=== PATIENT | female | born 1970 | race Caucasian/White ===

== ENCOUNTER 2017-08-18 21:51 | Emergency (ER) | payer MEDICAID ==
[~2017-08-18] VITALS: Ht 157.5 cm; Wt 72.6 kg
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
--- NOTE | 2017-08-18 22:13 | NUR ---
AT BEDSIDE FOR EVAL.
[2017-08-18] MEDS ORDERED: ASPIRIN 325 MG TABLET PO ONE (22:30)
[2017-08-18] MEDS ORDERED: LORAZEPAM INJ 2 MG/ML VIAL IV ONE (22:30)
[2017-08-18] MEDS ORDERED: ASPIRIN 81 MG TAB.CHEW ONE (22:59)
[2017-08-18] MEDS ORDERED: LORAZEPAM INJ 2 MG/ML VIAL ONE (23:00)
[2017-08-18 23:05] LABS: BASOPHILS % (AUTO) 0.5 % (0.0-2.0); EOSINOPHILS # (AUTO) 0.1 /CMM (0.0-0.7); EOSINOPHILS % (AUTO) 1.3 % (0.0-6.0); HEMATOCRIT 45 % (33-45); LYMPHOCYTES # (AUTO) 2.5 /CMM (0.8-4.8); LYMPHOCYTES % (AUTO) 34.2 % (20.0-44.0); MEAN CORPUSCULAR HEMOGLOBIN 31 PG (26.0-33.0); MEAN CORPUSCULAR HGB CONC 34 g/dl (31.0-36.0); MEAN CORPUSCULAR VOLUME 94 fL (82-100); MONOCYTES # (AUTO) 0.5 /CMM (0.1-1.30); MONOCYTES % (AUTO) 7.2 % (2.0-12.0); NEUTROPHILS # (AUTO) 4.2 /CMM (1.8-8.9); NEUTROPHILS % (AUTO) 56.8 % (43.0-81.0); PLATELET COUNT (AUTO) 227 /CMM (150-450); RDW COEFFICIENT OF VARIATION 12.2 (11.5-15.0); RED BLOOD CELL COUNT(AUTO) 4.78 MIL/uL (4.0-5.2); WHITE BLOOD COUNT (AUTO) 7.3 K/uL (4.3-11.0)
[2017-08-18 23:08] LABS: CALCIUM, SERUM 8.8 mg/dL (8.5-10.1); CARBON DIOXIDE 21 mmol/L (21-32); CHLORIDE 107 mmol/L (98-107); CREATININE 0.7 mg/dL (0.6-1.3); GLUCOSE 118 mg/dL (74-106); POTASSIUM 3.3 mmol/L (3.5-5.1); SODIUM SERUM 138 mmol/L (136-145); UREA NITROGEN, BLOOD 15 mg/dL (7-18)
--- NOTE | 2017-08-18 23:11 | NUR ---
URINE SPECIMEN OBTAINED AND SENT TO LAB.
[2017-08-18 23:17] LABS: TROPONIN I < 0.017 ng/mL (0.00-0.056)
--- NOTE | 2017-08-18 23:24 | NUR ---
XRAY AT BEDSIDE.
[2017-08-18 23:35] LABS: D-DIMER 0.46 mg/L(FEU (0.17-0.50); INR 0.86 (0.87-1.13); PROTHROMBIN TIME 8.9 SECS (9.5-12.7)
--- NOTE | 2017-08-19 00:53 | NUR ---
IV removed. Catheter intact and site benign. Pressure and 4x4 applied to site. No bleeding noted. Patient discharged with to home in stable condition. Written and verbal after care instructions given, pt instructed not to drive. Patient verbalizes understanding of instruction. Pt ambulatory with a steady gait.
[2017-08-19 00:55] VITALS: BP 116/66
== END 2017-08-19 00:56 | disposition home or self-care (01) ==
LOC: ER 21:52
DX: R06.02 Shortness of breath (principal); F41.9 Anxiety disorder, unspecified
CPT/HCPCS: 36415; 71010; 80048; 84484; 84703 ×2; 85025; 85378; 85730; 93005; 96374; 99285; A4606; J2060; Z7610

== ENCOUNTER 2020-08-18 10:39 | Emergency (ER) | payer SELFPAY ==
[~2020-08-18] VITALS: Ht 154.9 cm; Wt 77.1 kg
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
[2020-08-18] MEDS ORDERED: KETOROLAC TROMETHAMINE INJ 60 MG/2 ML VIAL IM ONE ×2 (10:56→11:00)
[2020-08-18 11:48] VITALS: BP 134/76
--- NOTE | 2020-08-18 11:48 | NUR ---
Patient discharged to home in stable condition. Written and verbal after care instructions given. Patient verbalizes understanding of instruction.
== END 2020-08-18 11:48 | disposition home or self-care (01) ==
LOC: ER 10:43
DX: S16.1XXA Strain of muscle, fascia and tendon at neck level, initial encounter (principal); S39.012A Strain of muscle, fascia and tendon of lower back, initial encounter; V49.49XA Driver injured in collision with other motor vehicles in traffic accident, initial encounter; Y93.89 Activity, other specified; Y92.488 Other paved roadways as the place of occurrence of the external cause; Y99.8 Other external cause status
CPT/HCPCS: 72125; 72131; 96372; 99285; J1885